=== PATIENT | male | born 1960 | race Caucasian/White ===

== ENCOUNTER 2019-06-09 18:04 | Emergency (ER) | payer OTHER ==
[~2019-06-09] VITALS: Ht 172.7 cm; Wt 77.7 kg
[~2019-06-09 18:04] MED LIST: CIPR500T4 PO; DIPH1TAB PO; METR500T PO
[2019-06-09 18:24] VITALS: Ht 172.7 cm; Wt 77.7 kg
[2019-06-09] MEDS ORDERED: SOD CHLORIDE 0.9% 1,000 ML IV STA ×2 (19:18)
[2019-06-09] MEDS ORDERED: ACETAMINOPHEN 500 MG TAB PO STA (19:44)
[2019-06-09 20:46] VITALS: BP 116/63; PULSE 88; RESP 18
== END 2019-06-09 20:47 | disposition home or self-care (01) ==
LOC: E/R 18:04
DX: A09 Infectious gastroenteritis and colitis, unspecified (principal)
CPT/HCPCS: 36415; 80053; 83690; 85025; 99284; J7030